=== PATIENT | female | born 1995 ===

== ENCOUNTER 2019-03-23 03:21 | Emergency (ER) | payer OTHER ==
[2019-03-23] MEDS ORDERED: ATIVAN PO ONE (05:15)
--- NOTE | 2019-03-23 05:20 | Emergency Department Report ---
ED Anxiety HPI - General Chief Complaint: Anxiety Stated Complaint: NUMBNESS ALL OVER BODY Time Seen by Provider: 03/23/19 05:14 Source: patient Mode of arrival: Ambulatory - History of Present Illness Initial Comments: 24-year-old -[place] female presents to the emergency room reporting numbness all over and feeling shaky. Patient states this started 30 minutes after having alcohol in it". Patient reports the first time having edible. Patient reports no past medical history takes no medications on a daily basis and has no known drug allergies. MD Complaint: anxiety -: minutes(s) (30 [employer]) Symptoms: extremity numbness Place: outdoors Previous History of Same: No Severity: moderate Quality: constant Provoking factors: none known (eating edible and drinking alcohol) Associated symptoms: anorexia - Related Data Allergies/Adverse Reactions: Allergies Allergy/AdvReac Type Severity Reaction Status Date / Time No Known Allergies Allergy Verified 03/23/19 03:25 ED Review of Systems ROS: Stated complaint: NUMBNESS ALL OVER BODY Other details as noted in HPI Comment: All other systems reviewed and negative ED Past Medical Hx - Past Medical History Previous Medical History?: No - Surgical History Past Surgical History?: Yes Additional Surgical History: D&C - Social History Smoking Status: Current Every Day Smoker Substance Use Type: Alcohol, Marijuana ED Physical Exam - General Limitations: No Limitations General appearance: alert, in no apparent distress, obese - Head Head exam: Present: atraumatic, normocephalic - Eye Eye exam: Present: normal appearance - ENT ENT exam: Present: mucous membranes moist - Neck Neck exam: Present: normal inspection, full ROM - Respiratory Respiratory exam: Present: normal lung sounds bilaterally. Absent: respiratory distress - Cardiovascular Cardiovascular Exam: Present: tachycardia - GI/Abdominal GI/Abdominal exam: Present: soft, normal bowel sounds. Absent: distended, tenderness - Extremities Exam Extremities exam: Present: normal inspection, full ROM - Neurological Exam Neurological exam: Present: alert, oriented X3 - Psychiatric Psychiatric exam: Present: normal affect, normal mood - Skin Skin exam: Present: warm, dry, intact, normal color. Absent: rash ED Medical Decision Making - Medical Decision Making Patient has been evaluated by this provider in [facility]. Discussed with Dr. Bambi Ge he agrees that Ativan 1 mg may help with patient's symptoms. Patient be discharged home with instructions to avoid using illegal drugs and to increase her fluid intake advance her diet as tolerated. Critical care attestation.: If time is entered above; I have spent that time in minutes in the direct care of this critically ill patient, excluding procedure time. ED Disposition Clinical Impression: Cannabis misuse, Anxiety Disposition: [id number] TO HOME OR SELFCARE Is pt being admited?: No Does the pt Need Aspirin: No Condition: Stable Instructions: Anxiety (ED), Cannabis Abuse (ED) Additional Instructions: Avoid use of cannabis. Increase her water intake advance her diet as tolerated. [facility] - 3-5 Days Forms: Work/School Release Form(ED)
[2019-03-23 05:28] VITALS: BP 171/101
== END 2019-03-23 05:53 | disposition home or self-care (01) ==
LOC: ED 03:21
DX: F41.9 Anxiety disorder, unspecified (principal); F12.10 Cannabis abuse, uncomplicated; F17.200 Nicotine dependence, unspecified, uncomplicated
CPT/HCPCS: 99282